=== PATIENT | male | born 1945 | race Caucasian/White ===

== ENCOUNTER 2019-10-09 06:50 | Day surgery (SDC) | payer MEDICARE, BC ==
[2019-10-09] MEDS ORDERED: DEXAMETHASONE SOD PHOSPHATE 4 MG INJ IV ONE (06:51)
[2019-10-09] MEDS ORDERED: CEFAZOLIN 1 G VIAL MC ONE (06:51)
[2019-10-09] MEDS ORDERED: PROPOFOL 200 MG/20 ML BOTTLE IV ONE (06:51)
[2019-10-09] MEDS ORDERED: KETOROLAC TROMETHAMINE 30 MG INJ IM ONE (06:51)
[2019-10-09] MEDS ORDERED: EPHEDRINE SULFATE 50 MG/ML AMPUL MC ONE (06:51)
[2019-10-09] MEDS ORDERED: SEVOFLURANE 250 ML BOTTLE IH ONE (06:51)
[2019-10-09] MEDS ORDERED: LIDOCAINE-MPF 2% 5 ML VIAL MC ONE (06:51)
[2019-10-09] MEDS ORDERED: ONDANSETRON 4 MG/2 ML VIAL IV ONE (06:51)
[2019-10-09] MEDS ORDERED: BUPIVACAINE 0.25% 30 ML VIAL ONE (07:53)
[2019-10-09] MEDS ORDERED: BUPIVACAINE/EPI PF 0.25% 30 ML VIAL ONE (07:53)
[2019-10-09] MEDS ORDERED: MORPHINE SULFATE PF 10 MG/10 ML AMPUL IV ONE (07:53)
[2019-10-09] MEDS ORDERED: FENTANYL CITRATE 100 MCG/2 ML AMPUL ONE (08:31)
== END 2019-10-09 12:10 | disposition home or self-care (01) ==
LOC: DS 06:50
PROVIDERS: ATTEND Orthopaedic Surgery
DX: S83.241A Other tear of medial meniscus, current injury, right knee, initial encounter (principal); M94.261 Chondromalacia, right knee; M65.88 Other synovitis and tenosynovitis, other site; M17.11 Unilateral primary osteoarthritis, right knee; I10 Essential (primary) hypertension; M19.90 Unspecified osteoarthritis, unspecified site; Z79.899 Other long term (current) drug therapy; Z98.890 Other specified postprocedural states; X58.XXXA Exposure to other specified factors, initial encounter; Y93.89 Activity, other specified; Y92.89 Other specified places as the place of occurrence of the external cause; Y99.8 Other external cause status
CPT/HCPCS: 29881; J0690; J1100; J1885; J2274; J2405; J3010; J3490 ×3; J7120; A4663